=== PATIENT | male | born 1970 | race Caucasian/White ===

== ENCOUNTER 2022-10-05 10:23 | Emergency (ER) | payer BC, SELFPAY ==
--- NOTE | 2022-10-05 10:28 | ED.URI ---
HPI - URI/Sore Throat General Chief Complaint: Upper Respiratory Infection Stated Complaint: cough/stopped up Time Seen by Provider: 10/05/22 10:28 Source: patient and RN notes reviewed History of Present Illness HPI Narrative: Patient is a 52-year-old male who presents to urgent care requesting antibiotics for his 2-day-old cough and chest congestion. Patient states that he took NyQuil last night and drink approximately ?half a bottle?. Patient denies any fevers, nausea or vomiting. Patient is a current smoker and denies any history of pneumonia. No other acute complaints. No acute distress noted. Patient aware of the plan of care. Some parts of this dictation were generated by voice recognition software and may contain typographical and/or grammatical inaccuracies. Related Data Allergies Allergy/AdvReac Type Severity Reaction Status Date / Time No Known Allergies Allergy Unverified 09/27/13 11:51 Review of Systems Review of Systems: CONSTITUTIONAL: Denies fever, chills, or sweats. EYES: Denies visual changes, redness, or discharge. ENT: Denies rhinorrhea, congestion, sore throat, or otalgia. CARDIOVASCULAR: Denies chest pain, palpitations, or edema. RESPIRATORY: Reports of chest congestion cough GASTROINTESTINAL: Denies abdominal pain, nausea, vomiting, or diarrhea. GENITOURINARY: Denies dysuria or hematuria. SKIN: Denies rash or itching. MUSCULOSKELETAL: Denies back pain, joint pain, or myalgia. NEUROLOGIC: Denies headache, numbness, or weakness. All other systems reviewed are negative, except as documented in HPI. PMFSH Comments At the time of my signature, I reviewed and agree with the nursing past medical, surgical, social, and family history. There is no relevant family history pertinent to the patient complaint. Exam Narrative: GENERAL: This is a well-nourished, well-developed patient, in no apparent distress. HEAD: normocephalic, atraumatic. EYES: PERRL. Sclera clear/white. Vision is grossly intact. EARS: External ears normal, auditory canals clear and without drainage, TMs normal without perforation. Hearing grossly intact. NOSE: External nose normal with no obvious nasal discharge, nares without redness, no rhinorrhea. THROAT: Mucous membranes moist, posterior pharynx clear. Moderate postnasal drainage NECK: Neck supple CARDIOVASCULAR: Regular rate and rhythm RESPIRATORY: Clear to auscultation. Breath sounds equal bilaterally. No wheezes, rales, or rhonchi. SKIN: warm, intact with no suspicious lesions or rash, good texture and turgor. NEURO: awake, alert, and oriented to person, place and time. There were no obvious focal neurologic abnormalities. EXTREMITIES: No clubbing, cyanosis, or edema. Course Course Level of Care: Express Care Visit Vital Signs Vital signs: Vital Signs Temperature 99.5 F 10/05/22 10:34 Pulse Rate 94 10/05/22 10:34 Respiratory Rate 16 10/05/22 10:34 Blood Pressure 142/81 H 10/05/22 10:34 Pulse Oximetry 95 10/05/22 10:34 Oxygen Delivery Room Air 10/05/22 10:34 Temperature 99.5 F 10/05/22 10:34 Pulse Rate 94 10/05/22 10:34 Respiratory Rate 16 10/05/22 10:34 Blood Pressure 142/81 H 10/05/22 10:34 Pulse Oximetry 95 10/05/22 10:34 Oxygen Delivery Room Air 10/05/22 10:34 Reviewed- Patient is informed that they may have pre-hypertension or hypertension based on a blood pressure reading in the department. I recommend the patient call the primary care provider listed on their discharge instructions or a physician of their choice this week to arrange follow-up for further evaluation of possible pre-hypertension or hypertension. MDM - URI/Sore Throat MDM Narrative Medical decision making narrative: Explained to the patient the 2 days of symptoms are consistent with common cold virus and do not require antibiotics at this time. Advised him to limit his smoking. Complete the steroid regimen as prescribed. Use the Tessalon Perles prior to bed
[2022-10-05 10:34] VITALS: BP 142/81; PULSE 94; RESP 16; TEMP 37.5; O2SAT 95
== END 2022-10-05 11:09 | disposition home or self-care (01) ==
PROVIDERS: Emergency Provider Nurse Practitioner Family
DX: J00 Acute nasopharyngitis [common cold] (principal)
CPT/HCPCS: 99213; G0463